=== PATIENT | male | born 1995 | race Caucasian/White ===

== ENCOUNTER 2016-04-22 15:28 | Emergency (ER) | payer OTHER ==
[~2016-04-22] VITALS: Ht 182.9 cm; Wt 92.2 kg
[2016-04-22 15:36] VITALS: TEMP 36.8; Ht 182.9 cm; Wt 92.2 kg
[2016-04-22] MEDS ORDERED: SODIUM CHLORIDE 0.9% 1000ML 1,000 ML IV STA (16:32)
[2016-04-22 16:39] VITALS: O2SAT 98
--- NOTE | 2016-04-22 16:53 | DIAGNOSTIC IMAGING REPORT ---
SINGLE VIEW CHEST CLINICAL HISTORY: Atypical chest pain. FINDINGS: An AP, portable, upright chest radiograph is obtained. No prior studies are available for comparison at the time of dictation. The cardiomediastinal silhouette is unremarkable. The lungs and pleural spaces are clear. No pneumothorax is seen. The bony thorax is grossly intact. IMPRESSION: No active disease in the chest. Electronically signed by: Chapincito Salinas M.D. 04/22/2016 4:51 PM Dictated Date/Time: 04/22/2016 4:51 PM
--- NOTE | 2016-04-22 17:06 | EMERGENCY ROOM VISIT NOTE ---
History Report prepared by Maurisio: Hannah Hunter Under the Supervision of: Dr. Valentino Levine M.D. First contact with patient: 16:05 Chief Complaint: CARDIAC ASSESSMENT Stated Complaint: CHEST PAIN, WEAKNESS IN ARMS, NAUSEA, TIGHT BACK Nursing Triage Summary: Patient ambulatory to triage, states "I have been drinking a lot of energy drinks and using stimulating stuff. I didn't go to bed until very late. I slept for about 10 hours. I woke up with chest pains in the center of my chest, a tightness, in my sternum. I have mild shortness of breath. I started coughing today." History of Present Illness The patient is a 21 year old male who presents to the Emergency Room for a cardiac assessment. Last night the patient was drinking alcohol and estimates that he consumed 4 energy drinks. He was up very late. This morning he woke up with chest pain and chest tightness. He has tightness in his back and arms. This has been constant for the past 4 hours. The patient rates his pain as a 4/ 10 in severity. He denies any illicit drug use. He states that his symptoms have started to improve since arriving in the ED, although he is still experiencing pain. He reports a cough and mild shortness of breath. Source of History: patient Onset: this morning Position: chest Symptom Intensity: 4/10 Quality: other (tightness) Timing: other (improving) Modifying Factors (Worsening): drinking Associated Symptoms: + SOB, + back pain, + cough Review of Systems See HPI for pertinent positives & negatives. A total of 10 systems reviewed and were otherwise negative. Past Medical & Surgical Medical Problems: (1) No significant active problems Family History No pertinent history stated. Social History Smoking Status: Current Some Day Smoker Alcohol Use: occasionally Housing Status: lives with roommate Occupation Status: [employer] student Current/Historical Medications No Active Prescriptions or Reported Meds Allergies Coded Allergies: Penicillins (Verified Allergy, Unknown, Hives, 04/22/16) Physical Exam Vital Signs Date Time Temp Pulse Resp B/P Pulse Ox O2 Delivery O2 Flow Rate FiO2 04/22/16 17:38 96 16 150/77 96 Room Air 04/22/16 16:39 98 Room Air 04/22/16 16:39 98 Room Air 04/22/16 16:05 89 1/16/17 15:36 36.8 102 18 154/106 98 Room Air 04/22/16 15:36 97 Room Air Physical Exam GENERAL: Patient is a healthy-appearing well-nourished 21 year old male. HEAD: Normocephalic atraumatic EYES: Ocular movements intact pupils equal and react to light OROPHARYNX mucous membranes are moist no exudates present no erythema or edema present NECK: Supple no nuchal rigidity CHEST: Good equal expansion LUNGS: Clear and equal to auscultation CARDIAC: Normal S1 and S2 ABDOMEN: Soft nontender no guarding BACK: No CVA tenderness EXTREMITIES: No pain upon palpation normal muscle strength in all groups no clubbing cyanosis or edema NEURO: Patient is following commands is answering questions appropriately. Alert and oriented x3 Cranial Nerves 2-12 grossly intact Medical Decision & Procedures ER Provider Diagnostic Interpretation: Radiology results as stated below per my review and radiologist interpretation: SINGLE VIEW CHEST CLINICAL HISTORY: Atypical chest pain. FINDINGS: An AP, portable, upright chest radiograph is obtained. No prior studies are available for comparison at the time of dictation. The cardiomediastinal silhouette is unremarkable. The lungs and pleural spaces are clear. No pneumothorax is seen. The bony thorax is grossly intact. IMPRESSION: No active disease in the chest. Electronically signed by: Chapincito Salinas M.D. 04/22/2016 4:51 PM Dictated Date/Time: 04/22/2016 4:51 PM Laboratory Results 04/22/16 16:52 Red Blood Count 5.50, Mean Corpuscular Volume 86.4, Mean Corpuscular Hemoglobin 30.2, Mean Corpuscular Hemoglobin Concent 34.9, Mean Platelet Volume 10.5, Neutrophils (%) (Auto) 84.6, Lymphocytes (%) (Auto) 8.4, Monocytes (%) (Auto) 6.5, Eosinophils (%) (Auto) 0.1, Basophils (%) (Auto) 0.1, Neutrophils # (Auto) 12.20, Lymphocytes # (Auto) 1.21, Monocytes # (Auto) 0.94, Eosinophils # (Auto) 0.02, Basophils # (Auto) 0.01 04/22/16 16:52 Test 04/22/16 16:52 White Blood Count 14.42 K/uL (4.8-10.8) Red Blood Count 5.50 M/uL (4.7-6.1) Hemoglobin 16.6 g/dL (14.0-18.0) Hematocrit 47.5 % (42-52) Mean Corpuscular Volume 86.4 fL (80-100) Mean Corpuscular Hemoglobin 30.2 pg (25-34) Mean Corpuscular Hemoglobin Concent 34.9 g/dl (32-36) Platelet Count 217 K/uL (130-400) Mean Platelet Volume 10.5 fL (7.4-10.4) Neutrophils (%) (Auto) 84.6 % Lymphocytes (%) (Auto) 8.4 % Monocytes (%) (Auto) 6.5 % Eosinophils (%) (Auto) 0.1 % Basophils (%) (Auto) 0.1 % Neutrophils # (Auto) 12.20 K/uL (1.4-6.5) Lymphocytes # (Auto) 1.21 K/uL (1.2-3.4) Monocytes # (Auto) 0.94 K/uL (0.11-0.59) Eosinophils # (Auto) 0.02 K/uL (0-0.5) Basophils # (Auto) 0.01 K/uL (0-0.2) RDW Standard Deviation 41.0 fL (36.4-46.3) RDW Coefficient of Variation 12.9 % (11.5-14.5) Immature Granulocyte % (Auto) 0.3 % Immature Granulocyte # (Auto) 0.04 K/uL (0.00-0.02) Anion Gap 10.0 mmol/L (3-11) Est Creatinine Clear Calc Drug Dose 91.6 ml/min Estimated GFR () 82.7 Estimated GFR (Non- 71.3 BUN/Creatinine Ratio 14.9 (10-20) Calcium Level 9.6 mg/dl (8.5-10.1) Total Bilirubin 1.5 mg/dl (0.2-1) Direct Bilirubin 0.3 mg/dl (0-0.2) Aspartate Amino Transf (AST/SGOT) 28 U/L (15-37) Alanine Aminotransferase (ALT/SGPT) 39 U/L (12-78) Alkaline Phosphatase 78 U/L (45-117) Total Creatine Kinase 199 U/L (39-308) Creatine Kinase MB 0.9 ng/ml (0.5-3.6) Creatine Kinase MB Ratio 0.5 (0-3.0) Troponin I < 0.015 ng/ml (0-0.045) Total Protein 8.1 gm/dl (6.4-8.2) Albumin 4.1 gm/dl (3.4-5.0) Lipase 99 U/L (73-393) Labs reviewed by ED physician. Medications Administered Medications (Trade) Dose Ordered Sig/Bettina Route Start Time Stop Time Status Last Admin Dose Admin Sodium Chloride (Nss 1000ml) 1,000 ml @ 999 mls/hr Q1H1M STAT IV 04/22/16 16:32 04/22/16 17:32 DC 04/22/16 16:32 999 MLS/HR ECG Indication: chest pain Rate (beats per minute): 95 Rhythm: normal sinus Findings: no acute ischemic change, no ectopy ED Course 1615: Past medical records reviewed. The patient was evaluated in room B9. A complete history and physical examination was performed. 1632: NSS 1000 ml @ 999 mls/hr IV 1805: I reassessed the patient at this time. He is feeling better and resting comfortably. I discussed the results and treatment plan with the patient. I answered all pertaining questions that he had. He expressed understanding and verbalized agreement. The patient will be discharged home. Medical Decision Differential diagnosis: Etiologies such as cardiac ischemia, aortic dissection, pulmonary embolism, pneumonia, pneumothorax, musculoskeletal, infections, pericarditis, myocarditis , esophageal rupture, gastrointestinal, as well as others were entertained. This is a 21-year-old who presents emergency department complaining of chest pain. The patient admits to heavy partying last night and was drinking energy drinks along with alcohol in addition to taking others 'stimulants". When questioned as to what these were the patient is elusive. As he has been having chest pain throughout the day today of expect his troponin to be elevated if this were related to cardiac ischemia. As such it is not. In addition the patient has a normal CK and MB fraction. An IV was established, the patient was given normal saline bolus. The patient is slightly dehydrated on his laboratory work. I strongly recommended that the patient abstain from the substances in the future until follow-up with cardiology. Patient was in agreement with the treatment plan. Impression Primary Impression: Dehydration Additional Impressions: Precordial chest pain Hypertension Scribe Attestation The scribe's documentation has been prepared under my direction and personally reviewed by me in its entirety. I confirm that the note above accurately reflects all work, treatment, procedures, and medical decision making performed by me. Departure Information Dispostion Home / Self-Care Prescriptions No Active Prescriptions or Reported Meds Referrals Luis Eduardo Ferguson M.D. Forms IMPORTANT VISIT INFORMATION, School Instructions, Work Instructions Patient Instructions Chest Pain - [facility], ED Hypertension Poss, My [facility] Additional Instructions Follow up with Dr Ferguson's office Increase fluid intake next 48 hours Abstain from alcohol, stimulants and caffeine until follow up with DR Ferguson' s office Need follow up for hypertension You have been examined and treated today on an emergency basis only. This is not a substitute for, or an effort to provide, complete comprehensive medical care. It is impossible to recognize and treat all injuries or illnesses in a single emergency department visit. It is therefore important that you follow up closely with [facility]. Call as soon as possible for an appointment. Thank you for your time and consideration. I look forward to speaking with you again soon. Please don't hesitate to call us if you have any questions. Problem Qualifiers Additional Impressions: Hypertension Hypertension type: unspecified secondary hypertension Qualified Codes: I15.9 - Secondary hypertension, unspecified
[2016-04-22 17:08] LABS: BASO % 0.1 %; BASO ABS # 0.01 K/uL (0-0.2); COMPLETE YES; EOS % 0.1 %; HEMATOCRIT 47.5 % (42-52); IG% 0.3 %; LYMPH % 8.4 %; LYMPH ABS # 1.21 K/uL (1.2-3.4); MEAN CELL VOLUME 86.4 fL (80-100); MEAN CORPUSCULAR HEMOGLOBIN 30.2 pg (25-34); MEAN CORPUSCULAR HGB CONC 34.9 g/dl (32-36); MEAN PLATELET VOLUME 10.5 fL (7.4-10.4); MONO % 6.5 %; NEUT % 84.6 %; PLATELET COUNT 217 K/uL (130-400); WHITE BLOOD COUNT 14.42 K/uL (4.8-10.8)
[2016-04-22 17:29] LABS: ALT/SGPT 39 U/L (12-78); BLOOD UREA NITROGEN 21 mg/dl (7-18); BUN/CREATININE RATIO 14.9 (10-20); CALCIUM 9.6 mg/dl (8.5-10.1); CARBON DIOXIDE 28 mmol/L (21-32); CHLORIDE 102 mmol/L (98-107); GLUCOSE 90 mg/dl (70-99); POTASSIUM 4.4 mmol/L (3.5-5.1); SODIUM 140 mmol/L (136-145)
[2016-04-22 17:34] LABS: ALKALINE PHOSPHATASE 78 U/L (45-117); AST/SGOT 28 U/L (15-37); CKMB/CK RATIO 0.5 (0-3.0)
[2016-04-22 18:31] VITALS: BP 138/69; PULSE 92; O2SAT 97
== END 2016-04-22 18:34 | disposition home or self-care (01) ==
LOC: C.EDB 15:30
DX: E86.0 Dehydration (principal); R07.2 Precordial pain; I10 Essential (primary) hypertension; F17.200 Nicotine dependence, unspecified, uncomplicated

== ENCOUNTER 2017-01-08 16:37 | Emergency (ER) | payer BC, OTHER ==
[~2017-01-08] VITALS: Ht 182.9 cm; Wt 94.3 kg
[2017-01-08 16:49] VITALS: TEMP 37.2; Ht 182.9 cm; Wt 94.3 kg
[2017-01-08] MEDS ORDERED: LIDOCAINE/EPINEPHRINE 1% 20 ML VIAL INFIL ONE (17:15)
--- NOTE | 2017-01-08 17:22 | EMERGENCY ROOM VISIT NOTE ---
ED Visit Note First contact with patient: 16:55 CHIEF COMPLAINT: Abscess of left buttock HISTORY OF PRESENT ILLNESS: This 21-year-old male patient presents to the emergency department, ambulatory, 5 to 6 days after they noticed a hard, red, tender area on the left buttock. The patient was seen by [facility] today, and was advised to come to the emergency department for further evaluation due to UA just being unable to drain the abscess today. It is slowly getting larger, more painful and tender. No fever, chills, or loss of appetite. There has been no drainage from the area. There was no injury to the area preceding the infection. They rate the pain as constant, sharp and 2/ 10. Tetanus shot is up to date. They have tried nothing. The patient is not diabetic. The patient has no history of subcutaneous abscesses. REVIEW OF SYSTEMS: A 10 system review of systems was performed with positives and pertinent negatives listed in the history of present illness. All other systems were reviewed and are negative. ALLERGIES: Penicillin MEDICATIONS: Citalopram, lorazepam PMH: Anxiety SOCIAL HISTORY: Is a [employer] student. He lives locally with his roommates. The patient denies drug or tobacco use. He admits to occasional alcohol use. PHYSICAL EXAM: Vital Signs: Reviewed Nurse's notes, vital signs stable. GENERAL : This is a 21-year-old white male, no acute distress, non toxic in appearance, well-developed well-nourished. SKIN: There is an erythematous indurated area in the middle of the left buttock which measures about 4 cm in diameter. It is fluctuant but there is no pointing or drainage. There is a zone of inflammation around it but no lymphangitis. Capillary refill less than 2 seconds. MUSCULOSKELETAL: There is no limitation of the range of motion of the right lower extremity. EMERGENCY DEPARTMENT COURSE: I examined the patient. Verbal consent was obtained to perform the procedure. After saline and Betadine cleansing and 6 mL of 1% buffered lidocaine with epinephrine anesthesia, the abscess was incised with a number 11 scalpel blade. A large amount of purulent material was released with more expressed by pressure. A swab was obtained for culture. 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 The abscess cavity was then copiously irrigated with sterile saline under pressure. The area was then packed with bacitracin soaked packing. The area was cleaned with sterile saline and dressed with bacitracin and a bulky bandage. The patient tolerated the procedure well. The patient was discharged home in stable condition. I attest that I have personally reviewed the patient's current medication list. Patient was found to have normal blood pressure on screening and does not require follow-up. DIFFERENTIAL DIAGNOSIS: Abscess, cellulitis, malignancy, and others DIAGNOSIS: Abscess of the left buttock Problem List Medical Problems: (1) No significant active problems Status: Chronic Current/Historical Medications Scheduled Cephalexin Monohydrate (Keflex), 500 MG PO QID Citalopram Hydrobromide (Citalopram Hydrobromide), 10 MG PO DAILY Sulfa/Trimethoprim (Bactrim Ds 800MG/160MG), 1 TAB PO BID Scheduled PRN Lorazepam (Ativan), 0.5 MG PO DAILY PRN for Anxiety Allergies Coded Allergies: Penicillins (Verified Allergy, Unknown, Hives, 04/22/16) Vital Signs Date Time Temp Pulse Resp B/P (MAP) Pulse Ox O2 Delivery O2 Flow Rate FiO2 01/08/17 17:59 88 18 143/75 96 01/08/17 16:49 37.2 95 20 130/80 96 Room Air Medications Administered Medications (Trade) Dose Ordered Sig/Bettina Route Start Time Stop Time Status Last Admin Dose Admin Lidocaine/ Epinephrine (Xylocaine/Epine 1% Inj) 20 ml ONE ONCE INFIL 01/08/17 17:15 01/08/17 17:16 DC 01/08/17 17:15 20 ML Departure Information Impression Primary Impression: Abscess of buttock, left Dispostion Home / Self-Care Condition GOOD Prescriptions Sulfa/Trimethoprim (Bactrim Ds 800MG/160MG) Tab 1 TAB PO BID for 7 Days, #14 TAB Prov: Delaney Garber PA-C 01/08/17 Cephalexin Monohydrate (Keflex) 500 Mg Cap 500 MG PO QID for 7 Days, #28 CAP Prov: Delaney Garber PA-C 01/08/17 Referrals No Doctor, Assigned [facility] Forms WORK / SCHOOL INSTRUCTIONS, HOME CARE DOCUMENTATION FORM, IMPORTANT VISIT INFORMATION Patient Instructions ED Abscess IandD, My [facility] Additional Instructions You were seen in the emergency department today for an abscess on your left buttock. This was successfully drained. A small amount of packing was placed in the abscess to allow for ongoing drainage. You may pull this packing in 48 hours, then keep the wound covered and soak in warm water to help with the drainage. You were prescribed Bactrim and Keflex to be taken as directed. This is an antibiotic. All antibiotics have the potential to cause diarrhea. Stop this medication and contact a medical provider if you were to develop any significant adverse side effects including: wheezing, shortness of breath, passing out, vomiting, or a diffuse rash. Always take antibiotics as directed and COMPLETE the ENTIRE course regardless of the improvement of your symptoms. Return to the emergency Department for any increasing redness, drainage, pus, fever, chills, nausea, vomiting, or other concerning symptoms. Follow-up with [facility] in 1-2 days for recheck of the abscess.
[2017-01-08] MEDS ORDERED: LORA-741 PO (17:37)
[2017-01-08] MEDS ORDERED: CITA10TA4 PO (17:37)
[2017-01-08] MEDS ORDERED: SULF800T23 PO (17:48)
[2017-01-08] MEDS ORDERED: CEPH500C PO (17:48)
[2017-01-08 17:59] VITALS: BP 143/75; PULSE 88; O2SAT 96
== END 2017-01-08 18:00 | disposition home or self-care (01) ==
LOC: C.EDB 16:38 → C.EDD 18:00
DX: L02.31 Cutaneous abscess of buttock (principal); Z79.899 Other long term (current) drug therapy; F41.9 Anxiety disorder, unspecified